=== PATIENT | female | born 1980 | race African-American/Black ===

== ENCOUNTER 2017-06-28 23:03 | Inpatient (IN) ==
[2017-06-29] MEDS ORDERED: ONDANSETRON 4 MG/2 ML VIAL IV STA (01:13)
[2017-06-29] MEDS ORDERED: fentaNYL 100 MCG/2 ML VIAL IV STA (01:23)
[2017-06-29] MEDS ORDERED: fentaNYL 100 MCG/2 ML VIAL ONE ×2 (01:29→08:50)
[2017-06-29] MEDS ORDERED: ONDANSETRON 4 MG/2 ML VIAL ONE ×2 (01:29→08:51)
[2017-06-29 02:06] LABS: Basophils % 0.4 % (0.0-0.8); Eosinophils % 0.4 % (0.00-10.9); Hematocrit 43.5 VOL% (35.7-47.0); Hemoglobin 14.2 GM/DL (12.0-16.0); Immature Granulocytes % 0.4 %; Immature Granulocytes Absolute 0.04 #; Lymphocytes # 1.1 10*3/uL (1.4-4.0); Lymphocytes % 11.3 % (21.3-54.2); Mean Corpuscular HGB Conc 32.6 GM/DL (32-36); Mean Corpuscular Hemoglobin 29 PG (27-34); Mean Corpuscular Volume 89.3 FL (87-102); Mean Platelet Volume 9.9 FL (9.6-12.0); Monocytes # 0.5 10*3/uL (0.11-0.8); Monocytes % 4.8 % (1.7-12.7); Neutrophils # 7.9 10*3/uL (1.4-7.4); Neutrophils % 82.7 % (38.7-73.9); Platelet Count 317 T/CUMM (130-400); Red Blood Count 4.87 MC/CUMM (3.8-5.5); Red Cell Distribution Width 15.4 % (9.3-17.3); White Blood Count 9.5 T/CUMM (4-12)
[2017-06-29 02:23] LABS: Bilirubin,Direct 0.25 MG/DL (0.0-0.20); Bilirubin,Indirect 0.6 MG/DL (0.0-1.0); Bilirubin,Total 0.8 MG/DL (0.2-1.0); Calcium 9.2 MG/DL (8.5-10.1); Osmolality,Calculated 278.3 MOS/KG (273-304); Potassium 3.6 MMOL/L (3.5-5.1); Total Protein 8.8 G/DL (6.4-8.3)
[2017-06-29] MEDS ORDERED: HYDROmorphone 2 MG/1 ML VIAL IV PRN (04:16)
[2017-06-29] MEDS ORDERED: ONDANSETRON 4 MG/2 ML VIAL IV PRN ×2 (04:16→09:10)
[2017-06-29] MEDS: DEXTROSE 5% LACTATED RINGERS 1,000 ML IV SCH ×4 (05:19→21:57)
[2017-06-29] MEDS ORDERED: DIAZEPAM 5 MG TABLET PO ONE (06:36)
[2017-06-29] MEDS ORDERED: SCOPOLAMINE 1.5 MG PATCH TRANSDERM ONE (06:36)
[2017-06-29] MEDS ORDERED: FAMOTIDINE 20 MG TABLET PO ONE (06:36)
[2017-06-29] MEDS ORDERED: TISSUE ADHESIVE 1 EACH APPLICATOR TOP ONE (06:37)
[2017-06-29] MEDS ORDERED: LIDOCAINE 1%/EPI INJ 20 ML VIAL ONE (06:37)
[2017-06-29] MEDS ORDERED: CLINDAMYCIN INJ 900 MG in PREMIX 1 EACH IV ONE (06:41)
[2017-06-29] MEDS ORDERED: CLINDAMYCIN INJ 50 ML IV ONE (07:13)
[2017-06-29] MEDS ORDERED: SEVOFLURANE 1 UNIT/15 MINUTE INH ONE (08:49)
[2017-06-29] MEDS ORDERED: PROPOFOL 200 MG/20 ML VIAL IV ONE (08:49)
[2017-06-29] MEDS ORDERED: GLYCOPYRROLATE 0.4 MG/2 ML VIAL ONE (08:50)
[2017-06-29] MEDS ORDERED: METOPROLOL TARTRATE 5 MG/5 ML VIAL IV ONE (08:50)
[2017-06-29] MEDS ORDERED: DEXAMETHASONE 10 MG/1 ML VIAL ONE (08:50)
[2017-06-29] MEDS ORDERED: methylPREDNISolone SOD SUC 125 MG/2 ML VIAL ONE (08:50)
[2017-06-29] MEDS ORDERED: MIDAZOLAM 2 MG/2 ML VIAL ONE (08:50)
[2017-06-29] MEDS ORDERED: NEOSTIGMINE 10 MG/10 ML VIAL ONE (08:51)
[2017-06-29] MEDS: HYDROmorphone 2 MG/1 ML VIAL IV PRN ×2 (08:51→09:00)
[2017-06-29] MEDS ORDERED: ROCURONIUM 100 MG/10 ML VIAL IV ONE (08:51)
[2017-06-29] MEDS ORDERED: PHENYLEPHRINE 1 MG/10 ML SYRINGE IV ONE (08:51)
[2017-06-29] MEDS ORDERED: HYDROmorphone 2 MG/1 ML VIAL ONE (08:51)
[2017-06-29] MEDS ORDERED: LACTATED RINGERS 1,000 ML IV SCH (09:00)
[2017-06-29] MEDS ORDERED: hydrALAZINE 20 MG/1 ML VIAL ONE (09:35)
[2017-06-29] MEDS ORDERED: PROMETHAZINE 25 MG/1 ML VIAL ONE (09:36)
[2017-06-29] MEDS: hydrALAZINE 20 MG/1 ML VIAL IV PRN ×2 (09:36→09:46)
[2017-06-29] MEDS ORDERED: PROMETHAZINE INJ 6.25 MG in SODIUM CHLORIDE 0.9% 50 ML IV ONE (09:44)
[2017-06-29] MEDS ORDERED: ACETAMINOPHEN 1,000 MG/100 ML VIAL IV ONE (10:32)
[2017-06-29] MEDS ORDERED: PANTOPRAZOLE 40 MG TABLET PO SCH (10:49)
[2017-06-29] MEDS ORDERED: BACLOFEN 10 MG TABLET PO PRN (10:49)
[2017-06-29] MEDS ORDERED: ONDANSETRON 4 MG TABLET PO PRN (10:49)
[2017-06-29] MEDS ORDERED: CLORAZEPATE 3.75 MG TABLET PO PRN (10:49)
[2017-06-29] MEDS ORDERED: POTASSIUM CHLORIDE 8 MEQ CAPSULE PO SCH (10:49)
[2017-06-29] MEDS ORDERED: PROMETHAZINE 25 MG TABLET PO PRN (10:49)
[2017-06-29] MEDS: MYCOPHENOLATE MOFETIL 250 MG CAPSULE PO SCH ×2 (11:45→21:42)
[2017-06-29] MEDS: azaTHIOprine 50 MG TABLET PO SCH (11:46)
[2017-06-29] MEDS: predniSONE 20 MG TABLET PO SCH (11:46)
[2017-06-29] MEDS: PANTOPRAZOLE 40 MG TABLET PO SCH (11:46)
[2017-06-29] MEDS: LOSARTAN/HCTZ 50-12.5 MG TABLET PO SCH (11:46)
[2017-06-30 08:06] VITALS: BP 142/98
[2017-06-30] MEDS: LOSARTAN/HCTZ 50-12.5 MG TABLET PO SCH (09:01)
[2017-06-30] MEDS: azaTHIOprine 50 MG TABLET PO SCH (09:01)
[2017-06-30] MEDS: PANTOPRAZOLE 40 MG TABLET PO SCH (09:02)
[2017-06-30] MEDS: MYCOPHENOLATE MOFETIL 250 MG CAPSULE PO SCH (09:02)
[2017-06-30] MEDS: predniSONE 20 MG TABLET PO SCH (09:02)
[2017-06-30] MEDS: DEXTROSE 5% LACTATED RINGERS 1,000 ML IV SCH (09:04)
[2017-07-04] MEDS ORDERED: ERGOCALCIFEROL 50,000 UNIT CAPSULE PO SCH (09:00)
== END 2017-06-30 11:40 | disposition home or self-care (01) | DRG 419 ==
LOC: N.ED 23:03 → N.EDINP 06-29 04:16 → N.4E 06-29 04:44
PROVIDERS: ADMIT Surgery; ATTEND Surgery
PROC: LAPCHOL (2017-06-29 07:15)